=== PATIENT | female | born 1965 | race Caucasian/White ===

== ENCOUNTER 2017-07-03 21:04 | Emergency (ER) | payer OTHER ==
[~2017-07-03] VITALS: Ht 167.6 cm; Wt 74.4 kg
--- NOTE | 2017-07-03 21:20 | NUR ---
PT AMBULATORY TO ER BED 7. BIBSELF C/O LOW BACK/ABD PAIN X 3 DAYS. DENIES N/V/D. PT PLACED IN GOWN AND ON PROMOTIONAL DEMONSTRATOR. VSS/RESP EVEN UNLABORED/NAD NOTED/SKIN WARM AND DRY/ AFEBRILE/AOX4. AWAITING MD CRUZ.
--- NOTE | 2017-07-03 21:27 | NUR ---
URINE SPECIMEN OBTAINED AND SENT TO THE LAB.
[2017-07-03] MEDS ORDERED: KETOROLAC TROMETHAMINE 15 MG/ML VIAL ONE (22:27)
[2017-07-03] MEDS ORDERED: IV NS 0.9% 1,000 ML BAG IV ONE (22:30)
[2017-07-03] MEDS ORDERED: KETOROLAC TROMETHAMINE INJ 30 MG/ML VIAL IV ONE (22:30)
--- NOTE | 2017-07-03 22:30 | NUR ---
22G IV TO R HAND X 1 ATTEMPT USING ASEPTIC TECH, BLOOD HANDED OVER TO THE LAB AT BEDSIDE. IV FLUSHES EASILY WITH NS, NO S/S OF INFILTRATION NOTED.
[2017-07-03 22:37] LABS: APPEARANCE,URINE CLEAR (CLEAR); BILIRUBIN,URINE NEGATIVE (NEGATIVE); BLOOD, URINE NEGATIVE Ery/uL (NEGATIVE); COLOR,URINE YELLOW (YELLOW); KETONES,URINE NEGATIVE (NEGATIVE); LEUKOCYTE ESTERASE ,URINE NEGATIVE (NEGATIVE); NITRITE, URINE NEGATIVE (NEGATIVE); PROTEIN,URINE NEGATIVE (NEGATIVE); UGLUCOSE NEGATIVE (NEGATIVE); UROBILINOGEN,URINE 0.2 EU/dL (0.2)
[2017-07-03 23:07] LABS: BASOPHILS % (AUTO) 0.5 % (0.0-2.0); EOSINOPHILS % (AUTO) 3.7 % (0.0-6.0); HEMATOCRIT 35 % (33-45); HEMOGLOBIN 11.7 g/dL (11.5-14.8); LYMPHOCYTES % (AUTO) 38.5 % (20.0-44.0); MEAN CORPUSCULAR HGB CONC 34 g/dl (31.0-36.0); MEAN CORPUSCULAR VOLUME 81 fL (82-100); MONOCYTES # (AUTO) 0.7 /CMM (0.1-1.30); MONOCYTES % (AUTO) 8.8 % (2.0-12.0); NEUTROPHILS # (AUTO) 3.8 /CMM (1.8-8.9); NEUTROPHILS % (AUTO) 48.5 % (43.0-81.0); PLATELET COUNT (AUTO) 84 /CMM (150-450); RDW COEFFICIENT OF VARIATION 13.6 (11.5-15.0); WHITE BLOOD COUNT (AUTO) 7.8 K/uL (4.3-11.0)
[2017-07-03 23:23] LABS: ALBUMIN 3.4 g/dL (3.4-5.0); BILIRUBIN,DIRECT 0.1 mg/dL (0.0-0.2); BILIRUBIN,TOTAL 0.3 mg/dL (0.2-1.0); CALCIUM, SERUM 8.8 mg/dL (8.5-10.1); CREATININE 0.8 mg/dL (0.6-1.3); POTASSIUM 3.7 mmol/L (3.5-5.1); TOTAL PROTEIN, SERUM 7.2 g/dL (6.4-8.2)
[2017-07-03 23:42] LABS: EOSINOPHILS % (MANUAL) 3 % (0-4); LYMPHOCYTES % (MANUAL) 34 % (16-48); MONOCYTES % (MANUAL) 7 % (0-11.0); NEUTROPHILS % (MANUAL) 56 (42-76)
--- NOTE | 2017-07-03 23:57 | NUR ---
IV removed. Catheter intact and site benign. Pressure and 4x4 applied to site. No bleeding noted. Patient discharged to home in stable condition. Written and verbal after care instructions given. Patient verbalizes understanding of instruction. Patient ambulatory with a steady gait.
[2017-07-03 23:58] VITALS: BP 131/84
== END 2017-07-03 23:59 | disposition home or self-care (01) ==
LOC: ER 21:06
DX: M54.5 Low back pain (principal); R10.84 Generalized abdominal pain; M79.7 Fibromyalgia; I10 Essential (primary) hypertension; Z88.0 Allergy status to penicillin; Z88.2 Allergy status to sulfonamides
CPT/HCPCS: 36415; 80048-TC; 80076-TC; 81000-TC; 83690-TC; 84703-TC; 85025-TC; 87086-TC; A4606; J1885; J7030; Z7610

== ENCOUNTER 2017-08-17 21:13 | Emergency (ER) | payer OTHER ==
[~2017-08-17] VITALS: Ht 170.2 cm; Wt 76.2 kg
[2017-08-17 21:31] VITALS: BP 187/100
--- NOTE | 2017-08-17 22:10 | NUR ---
CALLED FROM LOBBY; NO ANSWER
--- NOTE | 2017-08-17 23:31 | NUR ---
CALLED AGAIN X4; NOT IN LOBBY
== END 2017-08-17 23:33 | disposition left against medical advice (07) ==
LOC: ER 21:15
DX: Z53.21 Procedure and treatment not carried out due to patient leaving prior to being seen by health care provider (principal)
CPT/HCPCS: A4606; Z7610

== ENCOUNTER 2020-10-22 10:00 | Emergency (ER) | payer OTHER ==
[~2020-10-22] VITALS: Ht 162.6 cm; Wt 68.9 kg
--- NOTE | 2020-10-22 10:00 | NUR ---
PT BIB RA 76 FROM A PHARMACY,C/O PALPITATION AND FEELING SICK AFTER GETTING COVID VACCINE. PT IS AAOX4, NOT IN RESPIRATORY DISTRESS, HOOKED TO CARDAIC MONITOR, KEPT RESTED AND COMFORTABLE. WILL CONTINUE TO MONITOR.
[2020-10-22] MEDS ORDERED: AMLODIPINE BESYLATE 10 MG TABLET ONE (10:21)
--- NOTE | 2020-10-22 10:26 | NUR ---
ER PHLEB AT BEDSIDE FOR BLOOD DRAW.
[2020-10-22] MEDS ORDERED: AMLODIPINE BESYLATE 5 MG TABLET PO ONE ×2 (10:30)
[2020-10-22 10:36] LABS: BASOPHILS % (AUTO) 0.5 % (0.0-2.0); HEMATOCRIT 39 % (33-45); LYMPHOCYTES # (AUTO) 2.1 K/uL (0.8-4.8); LYMPHOCYTES % (AUTO) 42.7 % (20.0-44.0); MEAN CORPUSCULAR HGB CONC 33 g/dl (31.0-36.0); MEAN CORPUSCULAR VOLUME 84 fL (82-100); MONOCYTES # (AUTO) 0.3 K/uL (0.1-1.30); MONOCYTES % (AUTO) 6.7 % (2.0-12.0); NEUTROPHILS # (AUTO) 2.3 K/uL (1.8-8.9); NEUTROPHILS % (AUTO) 45.1 % (43.0-81.0); PLATELET COUNT (AUTO) 195 K/uL (150-450); RED BLOOD CELL COUNT(AUTO) 4.67 MIL/uL (4.0-5.2)
[2020-10-22 10:43] LABS: CALCIUM, SERUM 8.6 mg/dL (8.5-10.1); CARBON DIOXIDE 28 mmol/L (21-32); CHLORIDE 107 mmol/L (98-107); CREATININE 0.7 mg/dL (0.6-1.3); GLUCOSE 94 mg/dL (74-106); POTASSIUM 3.9 mmol/L (3.5-5.1); SODIUM SERUM 143 mmol/L (136-145); UREA NITROGEN, BLOOD 11 mg/dL (7-18)
[2020-10-22] MEDS ORDERED: AMLO-212 PO (11:30)
--- NOTE | 2020-10-22 11:42 | NUR ---
IV removed. Catheter intact and site benign. Pressure and 4x4 applied to site. No bleeding noted. Patient discharged to home in stable condition. Written and verbal after care instructions given. Patient verbalizes understanding of instruction.
[2020-10-22 11:45] VITALS: BP 139/87
== END 2020-10-22 11:46 | disposition home or self-care (01) ==
LOC: ER 10:01
DX: T88.1XXA Other complications following immunization, not elsewhere classified, initial encounter (principal); I10 Essential (primary) hypertension; Z98.890 Other specified postprocedural states; Z88.0 Allergy status to penicillin; Z88.2 Allergy status to sulfonamides; Z60.2 Problems related to living alone; Z79.899 Other long term (current) drug therapy
CPT/HCPCS: 36415; 80048-TC; 84484-TC; 85025-TC

== ENCOUNTER 2023-05-05 03:57 | Emergency (ER) | payer OTHER ==
[~2023-05-05] VITALS: Ht 162.6 cm; Wt 68.0 kg
[~2023-05-05 03:57] MED LIST: AMLO-212 PO
[2023-05-05] MEDS ORDERED: diphenhydrAMINE HCL 50 MG/ML VIAL ONE (04:12)
[2023-05-05] MEDS ORDERED: methylPREDNISolone SOD SUCC 125 MG/2ML VIAL ONE (04:12)
[2023-05-05] MEDS ORDERED: FAMOTIDINE/PF INJ 20 MG/2 ML VIAL IV ONE ×2 (04:13→04:14)
[2023-05-05] MEDS: FAMOTIDINE/PF INJ 20 MG/2 ML VIAL IV ONE (04:39)
[2023-05-05] MEDS: methylPREDNISolone SOD SUCC 125 MG/2ML VIAL IV ONE (04:39)
[2023-05-05] MEDS: diphenhydrAMINE HCL 50 MG/ML VIAL IV ONE (04:39)
[2023-05-05] MEDS ORDERED: CLONIDINE HCL 0.1 MG TABLET PO ONE (05:00)
[2023-05-05] MEDS ORDERED: CLONIDINE HCL 0.1 MG TABLET ONE (05:00)
[2023-05-05] MEDS ORDERED: FAMO40TA7 PO (05:18)
[2023-05-05] MEDS ORDERED: PRED50TA PO (05:18)
[2023-05-05] MEDS ORDERED: EPIN0.3P3 IM (05:18)
[2023-05-05 05:28] VITALS: BP 166/97; O2SAT 97
== END 2023-05-05 05:28 | disposition home or self-care (01) ==
LOC: ER 04:02
DX: T78.40XA Allergy, unspecified, initial encounter (principal); I10 Essential (primary) hypertension; M79.7 Fibromyalgia; Z91.010 Allergy to peanuts; Z88.0 Allergy status to penicillin; Z88.2 Allergy status to sulfonamides; Z60.2 Problems related to living alone; X58.XXXA Exposure to other specified factors, initial encounter
CPT/HCPCS: 99284; 96374; 96375; J1200; J3490 ×2; J2930